=== PATIENT | female | born 2000 | race Caucasian/White ===

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

== ENCOUNTER → 2020-03-27 12:05 | Outpatient (BNVA) | payer MEDICAID, SELFPAY | PROVIDERS: Family Provider Pediatrics Adolescent Medicine; Visit Provider Nurse Practitioner Family | DX: Z11.59 Encounter for screening for other viral diseases (principal); Z20.828 Contact with and (suspected) exposure to other viral communicable diseases | CPT/HCPCS: 87635 ==

== ENCOUNTER 2020-04-24 14:52 | Emergency (ER) | payer MEDICAID, SELFPAY ==
[2020-04-24 14:54] VITALS: BP 155/108; PULSE 105; RESP 16; TEMP 36.9; O2SAT 98; BMI 29.8
--- NOTE | 2020-04-24 15:23 | XRR_ITS ---
PROCEDURE INFORMATION: Exam: XR Chest, 1 View Exam date and time: 04/24/2020 4:02 PM Age: 19 years old Clinical indication: Chest pain; Patient HX: Cp TECHNIQUE: Imaging protocol: XR of the chest Views: 1 view. COMPARISON: CR Chest 2 views* [id number] 05/06/2019 11:55 AM FINDINGS: Lungs: Unremarkable. No consolidation. Pleural space: Unremarkable. No pleural effusion. No pneumothorax. Heart/Mediastinum: Unremarkable. No cardiomegaly. Bones/joints: Unremarkable. XR/XR chest 1V portable [id number] IMPRESSION: No acute findings.
--- NOTE | 2020-04-24 15:23 | ECG_ITS ---
[facility] Test Date: 2020-04-24 Pat Name: Keven Sethi Department: Room: Gender: Female [employer]: : 2000 Requested By: Miranda Borjas Order Number: [id number] Jen MD: Bacilio Mccrary M.D. Measurements Intervals [place] Rate: 99 P: 48 VT: 137 QRS: 55 QRSD: 73 T: 34 QT: 309 QTc: 397 Interpretive Statements SINUS RHYTHM WITH OCCASIONAL VENTRICULAR PREMATURE COMPLEXES No previous ECG available for comparison Electronically Signed On 04-24-2020 19:49:06 ADJUNCT LECTURER by Bacilio Mccrary M.D. [id number]
[2020-04-24 16:26] LABS: Basophils % 0.5 %; Eosinophils % 0.3 %; Hematocrit 40.5 % (37.0-47.0); Hemoglobin 13.3 g/dL (11.5-15.3); Lymphocytes # 1.9 10^3/uL (1.5-6.5); Mean Corpuscular HGB Conc 32.8 g/dL (30.0-36.0); Mean Corpuscular Hemoglobin 28.5 pg (28.0-34.0); Mean Corpuscular Volume 86.9 fL (81-99); Mean Platelet Volume 10.9 fL (7.4-10.4); Monocytes # 0.4 10^3/uL (0.2-0.9); Monocytes % 5.6 %; Neutrophils # 5.25 10^3/uL (1.8-8.0); Neutrophils % 68.5 %; Nucleated Red Blood Cells % 0 %; Platelet Count 319 10^3/cmm (130-400); Red Blood Count 4.66 10^6/uL (4.1-5.3); Red Cell Distribution Width 13.7 % (12.1-15.1); White Blood Count 7.7 10^3/uL (4.5-13.0)
[2020-04-24 16:43] LABS: D Dimer 0.52 ug/mIFEU (0-0.59)
[2020-04-24 17:08] LABS: Troponin(5th) Baseline 6 ng/L (0-10)
--- NOTE | 2020-04-24 17:17 | W.ED.CHESTPA ---
HPI - Chest Pain General: Chief Complaint: Chest Pain Stated Complaint: Chest Pain/High BP Time Seen by Provider: 04/24/20 17:17 Source: patient Mode of arrival: ambulatory Limitations: no limitations History of Present Illness: HPI narrative: Patient comes in with chest discomfort. Patient has been running elevated blood pressure that was noticed the last time she went in for control. Patient was recommended to monitor her blood pressure and then follow-up. Patient also has a history of significant pelvic discomfort which she is concerned for endometriosis. Patient reports as chest heaviness. Patient appears well. Patient appears in no acute distress. Vital signs are normal except for elevation of blood pressure systolic 155. Patient reports symptoms started this afternoon at about 1:00. Review of Systems General: Reports: 10 or more systems reviewed and unremarkable except in HPI and below Card: Reports: chest pain [facility] ED PFSH: Medical History (Updated 04/24/20 @ 18:55 by JULIA Wiggins) Asthma Family History Other Diabetes Hypertension Stroke Social History Smoking and tobacco status: never smoked Second hand smoke exposure: No Alcohol intake: never Adopted: No Caregiver/support person: No Lives independently: No Highest education level completed: Some College, No Degree service: No Current occupational status: unemployed Current occupational exposures/hazards: No History of recent travel: No Physical Exam Const: COMMON NORMALS: no acute distress and patient oriented x3 GENERAL APPEARANCE: cooperative HENMT: COMMON NORMALS: normocephalic and Normal external nose present HEAD & SCALP: normal to inspection and normocephalic NOSE: Normal external nose present MOUTH: Normal oral and palatal mucosa present THROAT: posterior oropharynx normal Eye: GENERAL EYE: appearance normal, both eyes and all related structures Neck/C-Spine: COMMON NORMALS: full ROM Lymph: LYMPHATIC: no lymphadenopathy noted Chest: COMMONS NORMALS: normal inspection of the chest Resp: COMMON NORMALS: normal respiratory effort EFFORT & INSPECTION: Yes able to speak in complete sentences Cardio: COMMON NORMALS: regular rate and regular rhythm RATE: regular rate RHYTHM: regular rhythm GI: COMMON NORMALS: non-tender : COMMON NORMALS: Yes no CVA tenderness BLADDER/KIDNEY EXAM: Yes no CVA tenderness Back/Pelvis: COMMON NORMALS: no CVA tenderness and thoracic and lumbar spine normal to inspection Extremity: COMMON NORMALS: normal to inspection Neuro: COMMON NORMALS: patient oriented x3 and moves all extremities Psych: COMMON NORMALS: mental status grossly normal and cooperative Skin: COMMON NORMALS: no rashes or lesions noted GENERAL SKIN EXAM: no rashes or lesions noted Course Vital Signs: Vital signs: Vital Signs Temperature 98.4 F 04/24/20 14:54 Pulse Rate 76 04/24/20 18:40 Respiratory Rate 18 04/24/20 18:40 Blood Pressure 127/88 04/24/20 18:40 Pulse Oximetry 100 04/24/20 18:40 MDM - Chest Pain MDM Narrative: Medical decision making narrative: Patient comes in today with complaints of centralized chest discomfort. Patient was at work and started feeling pressure in her chest. Patient appears well. Patient appears no acute distress. Patient does appear mildly anxious. Vital signs noted some elevation of blood pressure. Differential diagnosis includes uncontrolled hypertension, anxiety, premature ventricular complexes, adverse drug effect. Laboratory values were unremarkable. Troponin at the 2-hour danny was unchanged. Chest x-ray noted was normal. EKG did note some occasional PVC. Patient was given a half a milligram of lorazepam with improvement in overall symptoms. Blood pressure did come down to 127 systolic. Reviewed exam with patient recommendations for treatment and follow-up with primary care. Patient reported understanding. Lab Data: Labs: Lab Results 04/24/20 04/24/20 04/24/20 Range/Units 16:15 16:15 16:15 WBC 7.7 (4.5-13.0) 10^3/ uL RBC 4.66 (4.1-5.3) 10^6/u L Hgb 13.3 (11.5-15.3) g/dL Hct 40.5 (37.0-47.0) % MCV 86.9 (81-99) fL MCH 28.5 (28.0-34.0) pg MCHC 32.8 (30.0-36.0) g/dL RDW 13.7 (12.1-15.1) % Plt Count 319 (130-400) 10^3/c mm MPV 10.9 H (7.4-10.4) fL Neut % (Auto) 68.5 % Lymph % (Auto) 25.0 % [place] % (Auto) 5.6 % Eos % (Auto) 0.3 % Baso % (Auto) 0.5 % Neut # (Auto) 5.25 (1.8-8.0) 10^3/u L Lymph # (Auto) 1.9 (1.5-6.5) 10^3/u L [place] # (Auto) 0.4 (0.2-0.9) 10^3/u L Eos # (Auto) 0.0 (0.0-0.8) 10^3/u L Baso # (Auto) 0.0 (0.0-0.1) 10^3/u L Nucleated RBC % (a uto) 0 % Nucleated RBCs # 0.0 /100WBC D-Dimer 0.52 (0-0.59) ug/mIFE U Sodium 136 (136-145) mmol/L Potassium 4.1 (3.5-5.1) mmol/L Chloride 102 (98-107) mmol/L Carbon Dioxide 22 (22-29) mmol/L Anion Gap 16.1 (5-19) BUN 10 (6-20) mg/dL Creatinine 0.5 (0.5-0.9) mg/dL GFR Calculation 158.9 H (90-130) mL/min Glucose 99 (65-115) mg/dL Calculated Osmolal ity 281 L (285-295) mOsm/k g Calcium 9.5 (8.5-10.5) mg/dL Total Bilirubin 0.2 (0.15-1.2) mg/dL AST 15 (0-32) U/L ALT 10 (0-33) U/L Alkaline Phosphata se 89 (35-105) IU/L Troponin T Baselin e (0-10) ng/L Troponin T 120 Min yuhaav[place]am (0-10) ng/L Delta Troponin T (0-10) ABS# Total Protein 7.0 (6.6-8.7) g/dL Albumin 4.3 (3.5-5.2) g/dL Globulin 2.7 (1.3-4.6) g/dL 04/24/20 04/24/20 Range/Units 16:15 18:12 WBC (4.5-13.0) 10^3/ uL RBC (4.1-5.3) 10^6/u L Hgb (11.5-15.3) g/dL Hct (37.0-47.0) % MCV (81-99) fL MCH (28.0-34.0) pg MCHC (30.0-36.0) g/dL RDW (12.1-15.1) % Plt Count (130-400) 10^3/c mm MPV (7.4-10.4) fL Neut % (Auto) % Lymph % (Auto) % [place] % (Auto) % Eos % (Auto) % Baso % (Auto) % Neut # (Auto) (1.8-8.0) 10^3/u L Lymph # (Auto) (1.5-6.5) 10^3/u L [place] # (Auto) (0.2-0.9) 10^3/u L Eos # (Auto) (0.0-0.8) 10^3/u L Baso # (Auto) (0.0-0.1) 10^3/u L Nucleated RBC % (a uto) % Nucleated RBCs # /100WBC D-Dimer (0-0.59) ug/mIFE U Sodium (136-145) mmol/L Potassium (3.5-5.1) mmol/L Chloride (98-107) mmol/L Carbon Dioxide (22-29) mmol/L Anion Gap (5-19) BUN (6-20) mg/dL Creatinine (0.5-0.9) mg/dL GFR Calculation (90-130) mL/min Glucose (65-115) mg/dL Calculated Osmolal ity (285-295) mOsm/k g Calcium (8.5-10.5) mg/dL Total Bilirubin (0.15-1.2) mg/dL AST (0-32) U/L ALT (0-33) U/L Alkaline Phosphata se (35-105) IU/L Troponin T Baselin e 6 (0-10) ng/L Troponin T 120 Min y[place]ha[place]am 6.00 (0-10) ng/L Delta Troponin T 0 (0-10) ABS# Total Protein (6.6-8.7) g/dL Albumin (3.5-5.2) g/dL Globulin (1.3-4.6) g/dL Discharge Plan Discharge Patient Disposition: Home Clinical Impression: Temporary high blood pressure, Anxiety about health, Frequent PVCs Condition: Stable Prescriptions: No Action albuterol sulfate [ProAir HFA] 90 mcg/actuation HFA aerosol inhaler 2 puff INHALATION Q4H PRNRF: 0 norethindrone-e.estradiol-iron [June FE 1.5/30 (28)] 1.5 mg-30 mcg (21)/75 mg (7) tablet 1 tab PO QDAY 28 Days Qty: 28 RF: 3 Discharge Orders: Discharge Order (Routine); Ordered 04/24/20 Ordered By: Rajinder Martin Referrals: [facility], [Primary Care Provider] - Patient Instructions: DASH Eating Plan (ED), Premature Ventricular Contractions (ED) Activity Restrictions/Additional Instructions: Avoid large amounts of caffeine intake. Healthy diet and exercise. Drink plenty of water. Follow-up with primary care for further treatment and evaluation. Return to the emergency department for new concerns. Stand Alone Forms: Work/School Release Coding Level of Care Code ED Mathematician for Tamra Fwd Exam Comprehensive
[2020-04-24] MEDS: LORazepam 0.5 mg Tablet PO (17:38)
[2020-04-24 17:51] LABS: Alanine Aminotransferase 10 U/L (0-33); Albumin Level 4.3 g/dL (3.5-5.2); Alkaline Phosphatase 89 IU/L (35-105); Anion Gap 16.1 (5-19); Aspartate Amino Transferase 15 U/L (0-32); Blood Urea Nitrogen 10 mg/dL (6-20); Calcium 9.5 mg/dL (8.5-10.5); Carbon Dioxide 22 mmol/L (22-29); Chloride 102 mmol/L (98-107); Globulin 2.7 g/dL (1.3-4.6); Glomerular Filtration Rate 158.9 mL/min (90-130); Glucose 99 mg/dL (65-115); Osmolality Calculated 281 mOsm/kg (285-295); Potassium 4.1 mmol/L (3.5-5.1); Sodium 136 mmol/L (136-145); Total Bilirubin 0.2 mg/dL (0.15-1.2)
[2020-04-24 18:40] VITALS: BP 127/88; PULSE 76; RESP 18; O2SAT 100
[2020-04-24 18:46] LABS: Troponin 5 2HR Delta 0 ABS# (0-10)
--- NOTE | 2020-04-28 11:27 | DCPLANNER ---
telecommunications manager had message to speak with patient about getting established with a primary care physician. telecommunications manager called the phone number [phone], unable to speak with patient at this time. telecommunications manager was unable to leave a voicemail for patient due to no voicemail box set up at this time.
== END 2020-04-24 19:10 | disposition home or self-care (01) ==
PROVIDERS: Emergency Medicine; Emergency Provider Nurse Practitioner Family
DX: F41.9 Anxiety disorder, unspecified (principal); R03.0 Elevated blood-pressure reading, without diagnosis of hypertension; I49.3 Ventricular premature depolarization
CPT/HCPCS: 12345; 36415; 71045; 80053; 84484; 85025; 85378; 93005; 99281; 99283

== ENCOUNTER → 2020-06-15 12:25 | Outpatient (BNVA) | payer MEDICAID, SELFPAY | PROVIDERS: Visit Provider Family Medicine | DX: Z20.828 Contact with and (suspected) exposure to other viral communicable diseases (principal) | CPT/HCPCS: 87635 ==

== ENCOUNTER → 2020-06-26 09:53 | Outpatient (BNVA) | payer MEDICAID, SELFPAY | PROVIDERS: Visit Provider Family Medicine | DX: U07.1 COVID-19 (principal) | CPT/HCPCS: 71046 ==

== ENCOUNTER → 2020-11-24 09:32 | Outpatient (BNVA) | payer MEDICAID, SELFPAY | PROVIDERS: Visit Provider Psychiatry & Neurology Psychiatry | DX: F41.1 Generalized anxiety disorder (principal) | CPT/HCPCS: 90792 ==

== ENCOUNTER → 2021-01-05 09:33 | Outpatient (BNVA) | payer OTHER, SELFPAY | PROVIDERS: Visit Provider Psychiatry & Neurology Psychiatry | DX: F41.1 Generalized anxiety disorder (principal) | CPT/HCPCS: 99214 ==

== ENCOUNTER → 2021-02-10 13:47 | Outpatient (BNVA) | payer OTHER, SELFPAY | PROVIDERS: Visit Provider Counselor Mental Health | DX: F41.1 Generalized anxiety disorder (principal) | CPT/HCPCS: 90834 ==

== ENCOUNTER → 2021-02-16 10:10 | Outpatient (BNVA) | payer OTHER, MEDICAID, SELFPAY | PROVIDERS: Visit Provider Psychiatry & Neurology Psychiatry | DX: F41.1 Generalized anxiety disorder (principal) | CPT/HCPCS: 99214 ==

== ENCOUNTER → 2021-03-03 10:42 | Outpatient (BNVA) | payer OTHER, MEDICAID, SELFPAY | PROVIDERS: Visit Provider Counselor Mental Health | DX: F41.1 Generalized anxiety disorder (principal) | CPT/HCPCS: 90834 ==

== ENCOUNTER → 2021-03-16 09:42 | Outpatient (BNVA) | payer OTHER, MEDICAID, SELFPAY | PROVIDERS: Visit Provider Counselor Mental Health | DX: F41.1 Generalized anxiety disorder (principal) | CPT/HCPCS: 90834 ==

== ENCOUNTER → 2021-03-30 09:10 | Outpatient (BNVA) | payer OTHER, MEDICAID, SELFPAY | PROVIDERS: Visit Provider Psychiatry & Neurology Psychiatry | DX: F41.1 Generalized anxiety disorder (principal); F90.9 Attention-deficit hyperactivity disorder, unspecified type | CPT/HCPCS: 99214 ==

== ENCOUNTER → 2021-05-14 08:41 | Outpatient (BNVA) | payer OTHER, SELFPAY | PROVIDERS: Visit Provider Psychiatry & Neurology Psychiatry | DX: F41.1 Generalized anxiety disorder (principal); F90.9 Attention-deficit hyperactivity disorder, unspecified type | CPT/HCPCS: 99214 ==

== ENCOUNTER → 2021-05-17 11:49 | Outpatient (BNVA) | payer MEDICAID, SELFPAY | PROVIDERS: Visit Provider Nurse Practitioner | DX: J02.9 Acute pharyngitis, unspecified (principal) | CPT/HCPCS: 87880 ==

== ENCOUNTER → 2021-08-03 11:33 | Outpatient (BNVA) | payer MEDICAID, SELFPAY | PROVIDERS: Visit Provider Nurse Practitioner Women's Health | DX: N92.6 Irregular menstruation, unspecified (principal) | CPT/HCPCS: 84146; 84443 ==

== ENCOUNTER → 2021-08-19 10:06 | Outpatient (BNVA) | payer MEDICAID, SELFPAY | PROVIDERS: Visit Provider Nurse Practitioner Women's Health | DX: Z30.9 Encounter for contraceptive management, unspecified (principal); N92.6 Irregular menstruation, unspecified; Z30.017 Encounter for initial prescription of implantable subdermal contraceptive | CPT/HCPCS: 81025 ==

== ENCOUNTER → 2021-09-07 11:07 | Outpatient (BNVA) | payer OTHER, MEDICAID, SELFPAY | PROVIDERS: Visit Provider Psychiatry & Neurology Psychiatry | DX: F41.1 Generalized anxiety disorder (principal); F90.9 Attention-deficit hyperactivity disorder, unspecified type | CPT/HCPCS: 99214 ==

== ENCOUNTER → 2021-10-20 15:15 | Outpatient (BNVA) | payer OTHER, MEDICAID, SELFPAY | PROVIDERS: Visit Provider Nurse Practitioner Women's Health | DX: Z01.419 Encounter for gynecological examination (general) (routine) without abnormal findings (principal); N92.6 Irregular menstruation, unspecified | CPT/HCPCS: 88175 ==

== ENCOUNTER → 2021-11-18 09:11 | Outpatient (BNVA) | payer OTHER, MEDICAID, SELFPAY | PROVIDERS: Visit Provider Psychiatry & Neurology Psychiatry | DX: F41.1 Generalized anxiety disorder (principal); F90.9 Attention-deficit hyperactivity disorder, unspecified type | CPT/HCPCS: 99214 ==

== ENCOUNTER 2022-11-03 09:23 | Outpatient (CLI) | payer MEDICAID, SELFPAY ==
[2022-11-03 10:14] LABS: Thyroid Stimulating Hormone 2.94 uIU/mL (0.27-4.20)
[2022-11-04 14:39] LABS: Insulin ( Reference Lab Test) 26.4 uIU/mL
== END 2022-11-03 09:24 | disposition home or self-care (01) ==
LOC: LAB 09:27
PROVIDERS: PCP Obstetrics & Gynecology; Visit Provider Obstetrics & Gynecology
DX: N92.6 Irregular menstruation, unspecified (principal)
CPT/HCPCS: 36415; 83525; 84443

== ENCOUNTER → 2022-11-30 13:19 | Outpatient (BNVA) | payer MEDICAID, SELFPAY | PROVIDERS: PCP Obstetrics & Gynecology; Visit Provider Obstetrics & Gynecology | DX: N92.6 Irregular menstruation, unspecified (principal); N85.4 Malposition of uterus | CPT/HCPCS: 76830 ==

== ENCOUNTER → 2023-02-02 15:50 | Outpatient (BNVA) | payer MEDICAID, SELFPAY | PROVIDERS: PCP Obstetrics & Gynecology; Visit Provider Nurse Practitioner Women's Health | DX: N92.6 Irregular menstruation, unspecified (principal) | CPT/HCPCS: 84146; 84702 ==

== ENCOUNTER 2023-03-21 09:51 | Outpatient (CLI) | payer MEDICAID, SELFPAY ==
--- NOTE | 2023-03-21 10:04 | US_ITS ---
WS: [id number] ULTRASOUND BILATERAL BREAST, Limited HISTORY: NIPPLE DISCHARGE, 22-year-old COMPARISON: None available. TECHNIQUE: 2-D and Doppler. Ultrasound is directed to the anterior breast around the nipples related to the nipple discharge. The re are some mildly dilated ducts. No masses or shadowing. No cysts. Negative ultrasound IMPRESSION: US/US breast BI limited* [id number] BI-RADS: 1-Negative FOLLOW-UP: See Report No ultrasound abnormality is identified.
== END 2023-03-21 09:52 | disposition home or self-care (01) ==
PROVIDERS: PCP Obstetrics & Gynecology; Visit Provider Nurse Practitioner Women's Health
DX: N64.52 Nipple discharge (principal)
CPT/HCPCS: 76642

== ENCOUNTER → 2023-12-28 15:00 | Outpatient (BNVA) | payer BC, MEDICAID, SELFPAY | PROVIDERS: PCP Obstetrics & Gynecology; Visit Provider Nurse Practitioner Women's Health | DX: N64.52 Nipple discharge (principal); N92.6 Irregular menstruation, unspecified | CPT/HCPCS: 83520 ==

== ENCOUNTER → 2025-01-01 12:11 | Outpatient (BNVA) | payer SELFPAY | PROVIDERS: PCP Obstetrics & Gynecology; Visit Provider Nurse Practitioner Women's Health | DX: Z01.419 Encounter for gynecological examination (general) (routine) without abnormal findings (principal) | CPT/HCPCS: 88175 ==